=== PATIENT | male | born 1950 | race American Indian/Alaskan Native ===

== ENCOUNTER 2018-12-22 08:34 | Outpatient (CLI) | payer MEDICAID, OTHER ==
[2018-12-22 10:47] LABS: Blood Urea Nitrogen 11 mg/dL (9-20)
--- NOTE | 2018-12-22 13:10 | Cat Scan Report ---
CT ABDOMEN AND PELVIS CONTRAST HISTORY: R10.13 ABDMONIAL PAIN/EPIGASTRIC/Z86.010 PERSONAL HISTORY COMPARISON: None TECHNIQUE: Routine abdominal and pelvic CT exam performed following intravenous and oral contrast ad ministration. Consent was obtained prior to the administration of the IV contrast. Note: All CT scans at this location are performed using CT dose reduction employed for [facility] [facility] by means of automated expo sure control. CONTRAST: 100 mL Omnipaque 300. FINDINGS: CT ABDOMEN: Lung Bases: Clear. Liver: No significant abnormality. Biliary: Gallbladder and bile ducts. No cholelithiasis. No signs of acute cholecystitis. Spleen: Normal. Pancreas: Normal. Adrenals: Normal. Kidneys: Normal. The renal collecting systems and ureters are nondilated. Lymphatics: No lymphadenopathy. Vasculature: No significant abnormality. Bowel/Peritoneum: Nonobstructive bowel. Sigmoid diverticulosis without mesocolonic fat stranding. No free air. No free fluid. Normal appendix. Additional findings: A wide neck fat-containing umbilical hernia. Bowel does not extend into the jon ia. CT PELVIC: : Normal urinary bladder. Mild prostate enlargement. Normal seminal vesicles. Osseous Structures: No change in the spine. No suspicious bone lesions. Additional Findings: Mild sigmoid diverticulosis but no diverticulitis. Normal rectum. IMPRESSION: 1. A wide neck fat-containing umbilical hernia. 2. No mass or inflammatory changes. 3. Mild sigmoid diverticulosis but no diverticulitis. 4. Mild prostate enlargement. Signer Name: Filiberto Reilly MD Signed: 12/22/2018 1:05 PM Workstation Name: [id number]
--- NOTE | 2018-12-22 19:20 | Ultrasound Report ---
ULTRASOUND ABDOMEN, LIMITED (RIGHT UPPER QUADRANT) INDICATION: R10.13 ABDOMINAL PAIN/EPIGASTRIC PAIN/Z86.010 PERSONAL HX OF COLP. COMPARISON: None available. FINDINGS: Pancreas: Visualized portion shows no significant abnormality. Liver: Shows diffusely increased echogenicity consistent with moderately severe fatty infiltration. Gallbladder: Normal. Bile ducts: Normal. Common Bile Duct measures 3.2 mm. Free fluid: None. Additional Findings: None. IMPRESSION: 1. Fatty infiltration of the liver. Signer Name: Armond Watreman MD Signed: 12/22/2018 7:16 PM Workstation Name: [id number]
== END 2018-12-22 08:35 | disposition home or self-care (01) ==
LOC: US 08:34
PROVIDERS: ATTEND Internal Medicine Gastroenterology
DX: R10.13 Epigastric pain (principal); K59.00 Constipation, unspecified; Z86.010 Personal history of colon polyps
CPT/HCPCS: 36415; 74177; 76705; 82565; 84520; Q9967

== ENCOUNTER 2019-01-11 06:24 | Day surgery (SDC) | payer OTHER ==
[2019-01-11] MEDS ORDERED: PROPOFOL 200 MG/20 ML VIAL IV ONE ×2 (07:25)
[2019-01-11] MEDS ORDERED: LIDOCAINE (2%) 20 MG/1 ML VIAL 20 ML MDV INFILTRATI ONE (07:25)
[2019-01-11] MEDS ORDERED: fentaNYL 100 MCG/2 ML INJ ONE (07:25)
[2019-01-11] MEDS ORDERED: SODIUM CHLORIDE 0.9% 1000 ML 1,000 ML IV SCH (08:00)
[2019-01-11] MEDS ORDERED: WATER FOR IRRIG STERILE 1,000 ML BOTTLE ONE (08:03)
--- NOTE | 2019-01-11 08:03 | Anesthesia Day of Surgery ---
Anesthesia Day of Surgery - Day of Surgery Patient H&P Reviewed: Yes Patient is NPO: Yes
[2019-01-11] MEDS ORDERED: WATER FOR IRRIG STERILE 250 ML BOTTLE IR ONE (08:04)
--- NOTE | 2019-01-11 08:08 | Anesthesia Consultation ---
Anesthesia Consult and Med Hx Date of service: 01/11/19 - Airway ROM Head & Neck: Adequate Mental/Hyoid Distance: Adequate Mallampati Class: Class II Intubation Access Assessment: Probably Good - Pulmonary Exam CTA: Yes - Cardiac Exam Cardiac Exam: RRR - Pre-Operative Health Status ASA Pre-Surgery Classification: ASA3 Proposed Anesthetic Plan: General, MAC - Cardiovascular System Hx Hypertension: Yes - Endocrine Hx Non-Insulin Dependent Diabetes: Yes
--- NOTE | 2019-01-11 08:59 | Short Stay Summary ---
Short Stay Documentation Date of service: 01/11/19 - History H&P: obtained from office - Allergies and Medications Current Medications: Allergies No Known Allergies Allergy (Unverified 12/22/18 08:34) Home Medications Medication Instructions Recorded Confirmed Last Taken Type Allopurinol 300 mg PO DAILY 01/11/19 01/11/19 01/09/19 History Losartan 5 mg PO DAILY 01/11/19 01/11/19 01/11/19 History amLODIPine 5 mg PO DAILY 01/11/19 01/11/19 01/11/19 History metFORMIN 500 mg PO DAILY 01/11/19 01/11/19 01/10/19 History Active Medications Sodium Chloride (Nacl 0.9% 1000 Ml) 1,000 mls @ 50 mls/hr IV DIRECT ERICKA Last Admin: 01/11/19 07:51 Dose: 50 mls/hr Documented by: - Brief post op/procedure progress note Date of procedure: 01/11/19 Findings: see dictations Estimated blood loss: none Pathology: list (antral biopsies for h.pylori) Specimen disposition: to lab Condition: stable - Disposition Condition at discharge: Good Disposition: DC-01 TO HOME OR SELFCARE - Discharge Diagnoses (1) Abdominal pain Status: Acute (2) Constipation Status: Acute Short Stay Discharge Plan Activity: other (no driving for 24 hours) Weight Bearing Status: Full Weight Bearing Diet: regular Follow up with: AUSTIN VILLA MD [Other] - 7 Days
--- NOTE | 2019-01-11 09:01 | Operative Report ---
Operative Report Operative Report: Date of procedure: 01/11/2019 Procedure: Esophagogastroduodenoscopy with biopsies of the antrum for H. pylori. Preprocedure diagnosis: Severe epigastric pain. Post procedure diagnosis: Mild antral gastritis without erosions or ulcers. Endoscopist: Dr. Vick Anesthesia: Monitored anesthesia care per anesthesia department Medications: Propofol per anesthesia Estimated blood loss: 0 After careful discussion of the nature and purpose of the procedure as well as details the technique risks benefits and alternatives consent was obtained. The patient was placed in the left lateral decubitus position and medicated per anesthesia. The tip of the Olympus video scope was passed per orum under direct vision into the esophagus and advanced into the stomach and descending duodenum. The descending duodenum the duodenal bulb and pylorus were symmetrical and normal. The scope was withdrawn into the stomach and the stomach then gently insufflated with air. The antrum revealed patchy erythema without erosions or ulcers. Biopsies were taken in the prepyloric area for H. pylori testing. The stomach was further insufflated and the scope was then retroflexed and partially withdrawn. The cardia, fundus, and body of the stomach were within normal limits and easily distensible.The scope was then wi thdrawn in the forward position. The esophagogastric junction was at 40 cm. The esophageal body was normal throughout. The procedure was was well tolerated and the patient was observed in recovery. Impressions: Mild antral gastritis. No ulcers or erosions. Normal upper digestive tract otherwise. Plan: Await biopsy report. The patient will call the office in approximately 10 days to discuss the results and further follow-up care. Electronically signed: Mike Vick MD
--- NOTE | 2019-01-11 09:03 | Operative Report ---
Operative Report Operative Report: Date of procedure: 01/11/2019 Preprocedure diagnosis: Constipation and abdominal pain Post procedure diagnosis: Normal colonoscopy Procedure: Colonoscopy to the cecum Endoscopist: Dr. Vick Anesthesia: Monitored anesthesia care per anesthesia department Estimated blood loss: 0 Medications: Monitored anesthesia care. See separate report by anesthesia for details. After careful discussion of the nature and purpose of the procedure as well as details of the technique risks benefits and alternatives the patient gave consent. Please see recent history and physical from the office. The patient was placed in the left lateral decubitus position and medicated per anesthesia. A rectal exam was performed sphincter tone was normal there were no masses palpable. The Olympus colonoscope was passed transanally and advanced under continuous direct vision without difficulty to the cecum. The colon was well prepared. The cecum was normal. The ascending colon was normal and on forward and retroflexed views. The transverse colon, descending colon, and sigmoid colon were normal. The rectum was normal on forward and retroflexed views. The procedure was well-tolerated overall and the patient was observed in recovery. Conclusions: Normal colonoscopy to the cecum. Plan: Repeat colonoscopy for screening purposes in 10 years, sooner if clinically indicated. The patient will follow-up to the office in a few weeks for further care and evaluation. Signed electronically: Mike Vick M.D.
--- NOTE | 2019-01-11 09:19 | Post Anesthesia Evaluation ---
- Post Anesthesia Evaluation Patient Participated: Yes Airway Patent: Yes Stable Respiratory Function: Yes Nausea/Vomiting: No Temp > 96.8F: Yes Pain Manageable: Yes Adequeate Hydration: Yes Anesthesia Complications: No Block Receding Appropriately: Not Applicable Patient on Ventilator: No
[2019-01-11 09:36] VITALS: BP 112/61
== END 2019-01-11 06:25 | disposition home or self-care (01) ==
LOC: GIO 06:24
PROVIDERS: ATTEND Internal Medicine Gastroenterology
DX: K59.00 Constipation, unspecified (principal); R10.9 Unspecified abdominal pain; R10.13 Epigastric pain; K29.50 Unspecified chronic gastritis without bleeding; E78.00 Pure hypercholesterolemia, unspecified; I10 Essential (primary) hypertension; E11.9 Type 2 diabetes mellitus without complications; Z79.899 Other long term (current) drug therapy; Z79.84 Long term (current) use of oral hypoglycemic drugs
CPT/HCPCS: 43239; 45378; 82962; 88305; 88342; J2704; J3010; J7030